=== PATIENT | female | born 1985 | race Caucasian/White ===

== ENCOUNTER → 2020-08-17 | Outpatient (CLI) | payer MEDICAID ==
[~2020-08-17] MED LIST: FERR325T6 MT; IBUP-2030 PO; PNV1TABL50 PO
== END | disposition home or self-care (01) ==
LOC: LAB 10:32
PROVIDERS: ATTEND Obstetrics & Gynecology
DX: Z20.828 Contact with and (suspected) exposure to other viral communicable diseases (principal); Z3A.38 38 weeks gestation of pregnancy
CPT/HCPCS: C9803; U0003